=== PATIENT | female | born 2000 | race Caucasian/White ===

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

== ENCOUNTER 2021-05-31 04:20 | Inpatient (IN) | payer MEDICAID ==
[~2021-05-31] VITALS: Ht 157.5 cm; Wt 57.6 kg
[2021-05-31] VITALS (8 sets, daily range): BP systolic 89–129; BP diastolic 46–76
[~2021-05-31 04:20] MED LIST changes: +HUMALOG100 UNIT/1 SC; +ZOFRAN4 MG PO
[2021-05-31 05:54] LABS: HEMATOCRIT 43.8 % (37.0-47.0); MEAN CELL VOLUME 86.9 fl (81.0-99.0); MEAN CORPUSCULAR HGB 28.2 pg (27.0-31.0); MEAN CORPUSCULAR HGB CONC 32.4 g/dl (33.0-37.0); MEAN PLATELET VOLUME 11.6 fl (9.6-12.3); PLATELET COUNT AUTOMATED 391 10*3/uL (130-400); RED BLOOD COUNT 5.04 10*6/uL (4.10-5.10); RED CELL DISTRI WIDTH 13.2 % (0-14.5); WHITE BLOOD COUNT 15.2 10*3/uL (4.8-10.8)
[2021-05-31 05:56] LABS: MANUAL DIFF REFLEX YES
[2021-05-31 05:57] LABS: ALKALINE PHOSPHATASE 115 U/L (45-117); BUN 13 mg/dl (7-24); CHLORIDE 99 mmol/L (98-107); CREATININE 1.18 mg/dL (0.55-1.02); POTASSIUM 4.6 mmol/L (3.5-5.1); SGOT/AST 20 IU/L (3-35); SGPT/ALT 23 U/L (12-78); SODIUM 129 mmol/L (136-145); TOTAL PROTEIN 8.2 gm/dL (6.4-8.2)
[2021-05-31 06:08] LABS: BILIRUBIN Negative (Negative); BLOOD Negative (Negative); CLARITY Clear (Clear); COLOR Yellow (Yellow); GLUCOSE 3+ (Negative); KETONE 4+ (Negative); LEUKO ESTERASE Negative (Negative); NITRITE Negative (Negative); SPECIFIC GRAVITY >= 1.030 (1.001-1.030); UROBILINOGEN 0.2 E.U./dl (0.0-1.0)
[2021-05-31 06:23] LABS: WBC 0-2 wbc/hpf (0-5)
[2021-05-31 06:30] LABS: PLATELET SUFFICIENCY NORMAL (NORMAL); TOTAL CELLS COUNTED 100 #CELLS
[2021-05-31 10:07] LABS: BUN 16 mg/dl (7-24); CHLORIDE 105 mmol/L (98-107); POTASSIUM 4.8 mmol/L (3.5-5.1); SODIUM 134 mmol/L (136-145)
[2021-05-31] MEDS ORDERED: HUMALOG100 UNIT/2 SQ (14:30)
[2021-05-31 14:57] LABS: BUN 12 mg/dl (7-24); CHLORIDE 119 mmol/L (98-107); CREATININE 0.97 mg/dL (0.55-1.02); POTASSIUM 5.6 mmol/L (3.5-5.1); SODIUM 142 mmol/L (136-145)
[2021-05-31 20:31] LABS: BUN 9 mg/dl (7-24); CHLORIDE 121 mmol/L (98-107); CREATININE 0.96 mg/dL (0.55-1.02); SODIUM 144 mmol/L (136-145)
[2021-05-31 20:34] LABS: POTASSIUM 5.2 mmol/L (3.5-5.1)
[2021-06-01] VITALS: BP 95/40
[2021-06-01 00:22] LABS: BUN 7 mg/dl (7-24); CHLORIDE 114 mmol/L (98-107); CREATININE 0.94 mg/dL (0.55-1.02); SODIUM 139 mmol/L (136-145)
[2021-06-01 00:24] LABS: POTASSIUM 3.1 mmol/L (3.5-5.1)
[2021-06-01 02:08] LABS: BUN 7 mg/dl (7-24); CHLORIDE 116 mmol/L (98-107); CREATININE 0.91 mg/dL (0.55-1.02); POTASSIUM 2.8 mmol/L (3.5-5.1); SODIUM 141 mmol/L (136-145)
[2021-06-01 04:00] VITALS: BP 94/58
[2021-06-01 05:49] LABS: BUN 6 mg/dl (7-24); CHLORIDE 115 mmol/L (98-107); POTASSIUM 3.2 mmol/L (3.5-5.1); SODIUM 138 mmol/L (136-145)
[2021-06-01 05:52] LABS: ALKALINE PHOSPHATASE 88 U/L (45-117); CHOLESTEROL 100 mg/dL (<200); FREE T4 1.08 ng/dl (0.76-1.46); LDL CHOLESTEROL 45 mg/dL (9-159); SGOT/AST 11 IU/L (3-35); SGPT/ALT 21 U/L (12-78); TOTAL PROTEIN 6.4 gm/dL (6.4-8.2); TRIGLYCERIDES 81 mg/dl (<150)
[2021-06-01 06:05] LABS: BASO % 0.2 % (0.0-1.0); EOS # 0.1 10*3/uL (0.0-0.4); EOS % 0.5 % (1.0-4.0); HEMATOCRIT 35.8 % (37.0-47.0); LYMPH % 26.9 % (27.0-41.0); MEAN CELL VOLUME 86.1 fl (81.0-99.0); MEAN CORPUSCULAR HGB 28.1 pg (27.0-31.0); MEAN CORPUSCULAR HGB CONC 32.7 g/dl (33.0-37.0); MEAN PLATELET VOLUME 10.8 fl (9.6-12.3); MONO # 1.1 10*3/uL (0.1-1.0); MONO % 7.5 % (3.0-9.0); NEUT # 9.5 10*3/uL (2.3-7.9); NEUT % 64.6 % (47.0-73.0); PLATELET COUNT AUTOMATED 344 10*3/uL (130-400); RED BLOOD COUNT 4.16 10*6/uL (4.10-5.10); RED CELL DISTRI WIDTH 13.5 % (0-14.5); WHITE BLOOD COUNT 14.7 10*3/uL (4.8-10.8)
[2021-06-01 06:24] LABS: ACT PARTIAL THROMBO TIME 26.2 SECONDS (20.0-32.1); INTERNATIONAL NORM RATIO 1.2 (2.0-3.5)
[2021-06-01 06:49] LABS: VITAMIN D, 25-HYDROXY 11.2 ng/mL (30-100)
[2021-06-01 08:00] VITALS: BP 101/56
[2021-06-01 12:00] VITALS: BP 107/50
== END 2021-06-01 14:45 | disposition home or self-care (01) | DRG 420 ==
LOC: ED 04:20 → ICCU 06:20 → EDHOLD 06:20 → ICCU 12:20
PROVIDERS: Emergency Medicine; Internal Medicine; ADMIT Internal Medicine; ATTEND Internal Medicine
DX: E10.10 Type 1 diabetes mellitus with ketoacidosis without coma (principal); N17.0 Acute kidney failure with tubular necrosis; R65.10 Systemic inflammatory response syndrome (SIRS) of non-infectious origin without acute organ dysfunction; E87.1 Hypo-osmolality and hyponatremia; K21.9 Gastro-esophageal reflux disease without esophagitis; E78.5 Hyperlipidemia, unspecified; E55.9 Vitamin D deficiency, unspecified; F17.210 Nicotine dependence, cigarettes, uncomplicated; Z71.6 Tobacco abuse counseling; Z79.4 Long term (current) use of insulin; Z79.899 Other long term (current) drug therapy

== ENCOUNTER 2022-05-25 16:21 | Emergency (ER) | payer MEDICAID ==
[~2022-05-25] VITALS: Ht 157.4 cm; Wt 44.0 kg
[~2022-05-25 16:21] MED LIST changes: +HUMALOG100 UNIT/2 SQ
[2022-05-25] MEDS ORDERED: NAPROSYN500 MG PO (17:48)
== END 2022-05-25 17:55 | disposition home or self-care (01) ==
LOC: ED 16:21
DX: S63.601A Unspecified sprain of right thumb, initial encounter (principal); E11.9 Type 2 diabetes mellitus without complications; Z79.4 Long term (current) use of insulin; E11.10 Type 2 diabetes mellitus with ketoacidosis without coma; F17.200 Nicotine dependence, unspecified, uncomplicated; X58.XXXA Exposure to other specified factors, initial encounter; Y93.89 Activity, other specified; Y92.89 Other specified places as the place of occurrence of the external cause; Y99.8 Other external cause status

== ENCOUNTER 2024-06-30 20:33 | Inpatient (IN) | payer MEDICAID ==
[~2024-06-30] VITALS: Ht 157.4 cm; Wt 54.4 kg
[~2024-06-30 20:33] MED LIST changes: +NAPROSYN500 MG PO
[2024-06-30] MEDS ORDERED: Ondansetron Hydrochloride 4 MG/2 ML VIAL IV ONE (20:50)
[2024-06-30] MEDS ORDERED: SODIUM CHLORIDE 0.9% 1,000 ML IV ONE ×2 (20:50→22:45)
[2024-06-30 20:57] VITALS: BP 121/73
[2024-06-30 21:33] LABS: VENOUS BLOOD GAS O2 SAT 72.5 % (60.0-85.0)
[2024-06-30] MEDS ORDERED: LORazepam 0.5 MG TAB PO ONE ×2 (22:15→23:45)
[2024-06-30] MEDS ORDERED: INSULIN REGULAR, HUMAN 1 UNIT/0.01 ML IV ONE (22:45)
[2024-07-01] VITALS (7 sets, daily range): BP systolic 92–141; BP diastolic 52–75
[2024-07-01 00:16] LABS: BILIRUBIN Negative (Negative); BLOOD Negative (Negative); CLARITY Clear (Clear); COLOR Yellow (Yellow); GLUCOSE 3+ (Negative); KETONE 4+ (Negative); LEUKO ESTERASE Negative (Negative); NITRITE Negative (Negative); SPECIFIC GRAVITY 1.025 (1.001-1.030); UROBILINOGEN 0.2 E.U./dl (0.0-1.0)
[2024-07-01] MEDS ORDERED: INSULIN REGULAR, HUMAN 1 UNIT/0.01 ML IV ONE (00:20)
[2024-07-01] MEDS ORDERED: SODIUM CHLORIDE 0.9% 1,000 ML IV ONE (00:20)
[2024-07-01] MEDS ORDERED: Ondansetron Hydrochloride 4 MG/2 ML VIAL IV PRN (00:20)
[2024-07-01] MEDS ORDERED: POTASSIUM CHLORIDE 20 MEQ TAB PO PRN (00:25)
[2024-07-01] MEDS ORDERED: POTASSIUM CHLORIDE 20 MEQ/100 ML BAG IV PRN (00:25)
[2024-07-01] MEDS ORDERED: INSULIN REGULAR IN 0.9 % NACL 100 ML IV SCH (00:25)
[2024-07-01] MEDS ORDERED: SODIUM CHLORIDE 0.9% 1,000 ML IV SCH (00:30)
[2024-07-01 00:33] LABS: EPITHELIAL CELLS 16-20
[2024-07-01 00:39] LABS: HEMATOCRIT 46.7 % (37.0-47.0); MEAN CORPUSCULAR HGB CONC 29.8 g/dl (33.0-37.0); MEAN PLATELET VOLUME 10.1 fl (9.6-12.3); PLATELET COUNT AUTOMATED 555 10*3/uL (130-400); RED BLOOD COUNT 4.97 10*6/uL (4.10-5.10); RED CELL DISTRI WIDTH 13.7 % (0-14.5)
[2024-07-01 00:40] LABS: MANUAL DIFF REFLEX YES
[2024-07-01 01:05] LABS: PLATELET SUFFICIENCY HIGH (NORMAL); TOTAL CELLS COUNTED 100 #CELLS
[2024-07-01] MEDS ORDERED: diazePAM 10 MG/2 ML SYR IV ONE (01:05)
[2024-07-01 01:10] LABS: ALKALINE PHOSPHATASE 139 U/L (46-116); BUN 15 mg/dl (9-23); CHLORIDE 102 mmol/L (98-107); LIPASE 25 U/L (12-53); SGPT/ALT 25 U/L (5-49); TOTAL PROTEIN 8.4 gm/dL (6.0-8.0)
[2024-07-01 01:13] LABS: POTASSIUM 6.1 mmol/L (3.4-5.1)
[2024-07-01] MEDS ORDERED: diazePAM 10 MG/2 ML SYR IV PRN (02:50)
[2024-07-01 03:12] LABS: ABG O2 SATURATION 98.3 % (94.0-98.0); ARTERIAL BLOOD GAS PO2 134.2 mmHg (83.0-108.0)
[2024-07-01 03:13] LABS: ABG BASE EXCESS -23.3 mmol/L (-2.0-3.0)
[2024-07-01 03:14] LABS: ARTERIAL BLOOD GAS PH 7.084 (7.350-7.450)
[2024-07-01] MEDS ORDERED: SODIUM BICARBONATE 50 MEQ/50 ML VIAL IV ONE (03:25)
[2024-07-01 05:02] LABS: BUN 11 mg/dl (9-23); CHLORIDE 120 mmol/L (98-107)
[2024-07-01] MEDS ORDERED: DEXTROSE 5% SALINE 0.45% 1,000 ML IV SCH ×2 (05:10→05:50)
[2024-07-01] MEDS ORDERED: DEXTROSE 5% 1,000 ML IV SCH (05:15)
[2024-07-01 06:17] LABS: URINE AMPHETAMINES Negative (1000ng/ml); URINE BARBITURATES Negative (200ng/ml); URINE BENZODIAZEPINES Negative (200ng/ml); URINE CANNABINOIDS (THC) Positive (50ng/ml); URINE COCAINE Negative (300ng/ml); URINE METHADONE Negative (300ng/ml); URINE OPIATES Negative (300ng/ml); URINE PHENCYCLIDINE Negative (25ng/ml)
[2024-07-01] MEDS ORDERED: POTASSIUM PHOS IN 0.9 % NACL 250 ML IV SCH (08:00)
[2024-07-01 09:06] LABS: BUN 7 mg/dl (9-23); CHLORIDE 114 mmol/L (98-107); POTASSIUM 3.8 mmol/L (3.4-5.1)
[2024-07-01 09:15] LABS: MEAN CORPUSCULAR HGB 28.2 pg (27.0-31.0); MEAN CORPUSCULAR HGB CONC 32.1 g/dl (33.0-37.0); MEAN PLATELET VOLUME 9.9 fl (9.6-12.3); RED BLOOD COUNT 3.87 10*6/uL (4.10-5.10); RED CELL DISTRI WIDTH 13.9 % (0-14.5); WHITE BLOOD COUNT 21.3 10*3/uL (4.8-10.8)
[2024-07-01 09:19] LABS: MANUAL DIFF REFLEX YES
[2024-07-01 09:20] LABS: MEAN CELL VOLUME 87.9 fl (81.0-99.0); PLATELET COUNT AUTOMATED 352 10*3/uL (130-400)
[2024-07-01 09:21] LABS: PLATELET SUFFICIENCY NORMAL (NORMAL); POLYCHROMASIA SLIGHT; TOTAL CELLS COUNTED 100 #CELLS
[2024-07-01] MEDS ORDERED: HEPARIN SODIUM 5,000 UNIT/ML VIAL SC SCH (10:00)
[2024-07-01 13:23] LABS: BUN 6 mg/dl (9-23); CHLORIDE 111 mmol/L (98-107); POTASSIUM 3.4 mmol/L (3.4-5.1)
[2024-07-01] MEDS ORDERED: MENTHOL USP 1 LOZ LOZENGE PO PRN (14:20)
[2024-07-01] MEDS ORDERED: Insulin Glargine, Recombinan 1 UNIT/0.01 ML SC ONE (15:10)
[2024-07-01 17:55] LABS: BUN 5 mg/dl (9-23); CHLORIDE 110 mmol/L (98-107); POTASSIUM 3.2 mmol/L (3.4-5.1)
[2024-07-01] MEDS ORDERED: POTASSIUM CHLORIDE 20 MEQ TAB PO ONE (18:25)
[2024-07-01] MEDS ORDERED: DEXTROSE 50% 25 GM/50 ML VIAL IV PRN (18:25)
[2024-07-01] MEDS ORDERED: LORazepam 0.5 MG TAB PO ONE (20:15)
[2024-07-01] MEDS ORDERED: ACETAMINOPHEN 325 MG TAB PO PRN (20:50)
[2024-07-01] MEDS ORDERED: INSULIN LISPRO 1 UNIT/0.01 ML SQ SCH (22:00)
[2024-07-02] VITALS: BP 104/67
[2024-07-02 04:00] VITALS: BP 111/71
[2024-07-02 05:17] LABS: CHLORIDE 109 mmol/L (98-107); POTASSIUM 3.5 mmol/L (3.4-5.1)
[2024-07-02 05:20] LABS: BUN < 5 mg/dl (9-23)
[2024-07-02 06:14] LABS: BASO # 0.1 10*3/uL (0.0-0.1); BASO % 0.6 % (0.0-1.0); EOS # 0.2 10*3/uL (0.0-0.4); EOS % 1.9 % (1.0-4.0); HEMATOCRIT 32.2 % (37.0-47.0); MEAN CORPUSCULAR HGB 28.4 pg (27.0-31.0); MEAN CORPUSCULAR HGB CONC 32.6 g/dl (33.0-37.0); MEAN PLATELET VOLUME 10.3 fl (9.6-12.3); MONO # 0.5 10*3/uL (0.1-1.0); NEUT # 5.4 10*3/uL (2.3-7.9); NEUT % 60.8 % (47.0-73.0); PLATELET COUNT AUTOMATED 283 10*3/uL (130-400); WHITE BLOOD COUNT 8.9 10*3/uL (4.8-10.8)
[2024-07-02] MEDS ORDERED: Insulin Glargine, Recombinan 1 UNIT/0.01 ML SC SCH (07:30)
[2024-07-02 08:00] VITALS: BP 111/74
[2024-07-02 12:00] VITALS: BP 110/70
== END 2024-07-02 14:42 | disposition home or self-care (01) | DRG 637 ==
LOC: ED 20:33 → EDHOLD 22:41 → ICCU 22:41
PROVIDERS: Physician Assistant Medical; Student in an Organized Health Care Education/Training Program; ADMIT Family Medicine; ATTEND Family Medicine
PROC: 06HY33Z Insertion of Infusion Device into Lower Vein, Percutaneous Approach (ICD-10-PCS; principal; 2024-07-01)
PROC: B54BZZA Ultrasonography of Right Lower Extremity Veins, Guidance (ICD-10-PCS; 2024-07-01)
DX: E10.10 Type 1 diabetes mellitus with ketoacidosis without coma (principal); N17.0 Acute kidney failure with tubular necrosis; R65.11 Systemic inflammatory response syndrome (SIRS) of non-infectious origin with acute organ dysfunction; D68.61 Antiphospholipid syndrome; R45.851 Suicidal ideations; K21.9 Gastro-esophageal reflux disease without esophagitis; F41.9 Anxiety disorder, unspecified; R00.0 Tachycardia, unspecified; D72.828 Other elevated white blood cell count; D75.839 Thrombocytosis, unspecified; E83.39 Other disorders of phosphorus metabolism; E87.5 Hyperkalemia; E83.52 Hypercalcemia; E88.09 Other disorders of plasma-protein metabolism, not elsewhere classified; F32.A Depression, unspecified; E78.2 Mixed hyperlipidemia; Z79.899 Other long term (current) drug therapy; Z79.01 Long term (current) use of anticoagulants; Z71.6 Tobacco abuse counseling; Z87.891 Personal history of nicotine dependence; Z83.3 Family history of diabetes mellitus; Z80.8 Family history of malignant neoplasm of other organs or systems

== ENCOUNTER 2024-10-07 18:25 | Emergency (ER) | payer MEDICAID ==
[~2024-10-07] VITALS: Ht 154.9 cm; Wt 50.8 kg
[2024-10-07] MEDS ORDERED: diphenhydrAMINE hydrochloride 50 MG/ML VIAL IV ONE (18:35)
[2024-10-07] MEDS ORDERED: SODIUM CHLORIDE 0.9% 1,000 ML IV ONE ×3 (18:35→19:45)
[2024-10-07] MEDS ORDERED: FAMOTIDINE 50 ML IV ONE (18:35)
[2024-10-07] MEDS ORDERED: Metoclopramide Hydrochloride 10 MG/2 ML VIAL IV ONE (18:35)
[2024-10-07 18:38] VITALS: BP 121/84
[2024-10-07 18:56] LABS: BASO # 0.1 10*3/uL (0.0-0.1); BASO % 0.6 % (0.0-1.0); EOS # 0.0 10*3/uL (0.0-0.4); EOS % 0.1 % (1.0-4.0); MEAN CELL VOLUME 90.6 fl (81.0-99.0); MEAN CORPUSCULAR HGB 28.4 pg (27.0-31.0); MEAN PLATELET VOLUME 9.8 fl (9.6-12.3); MONO # 0.3 10*3/uL (0.1-1.0); MONO % 2.9 % (3.0-9.0); NEUT # 7.6 10*3/uL (2.3-7.9); NEUT % 78.8 % (47.0-73.0); NUCLEATED RED BLOOD CELL 0.0 % (0.0-0.0); NUCLEATED RED BLOOD CELL 0.0 10*3/uL (0.0-0.0); PLATELET COUNT AUTOMATED 424 10*3/uL (130-400); RED CELL DISTRI WIDTH 12.8 % (0-14.5); VENOUS BLOOD GAS O2 SAT 58.9 % (60.0-85.0)
[2024-10-07 19:24] LABS: BUN 20.0 mg/dl (9-23)
[2024-10-07] MEDS ORDERED: INSULIN REGULAR, HUMAN 1 UNIT/0.01 ML IV ONE (19:35)
[2024-10-07] MEDS ORDERED: INSULIN REGULAR IN 0.9 % NACL 100 ML IV SCH (19:45)
[2024-10-07] MEDS ORDERED: ZOLOFT50 MG PO (20:03)
[2024-10-07] MEDS ORDERED: ATARAX,VISTARIL10 MG PO (20:03)
[2024-10-07] MEDS ORDERED: INSULIN AS100 UNIT/3 SQ (20:04)
== END 2024-10-07 21:01 | disposition admitted as inpatient to this hospital (09) ==
LOC: ED 18:25 → EDHOLD 19:49 → ED 19:49 → ICCU 19:49 → EDHOLD 19:52 → ICCU 20:13
PROVIDERS: Emergency Medicine
DX: E10.10 Type 1 diabetes mellitus with ketoacidosis without coma (principal); N17.9 Acute kidney failure, unspecified; D75.839 Thrombocytosis, unspecified; F12.10 Cannabis abuse, uncomplicated; R11.2 Nausea with vomiting, unspecified; R19.7 Diarrhea, unspecified; F17.290 Nicotine dependence, other tobacco product, uncomplicated; Z79.899 Other long term (current) drug therapy; Z79.4 Long term (current) use of insulin

== ENCOUNTER 2024-10-07 23:25 | Inpatient (IN) | payer MEDICAID ==
[~2024-10-07] VITALS: Ht 157.5 cm; Wt 48.5 kg
[~2024-10-07 23:25] MED LIST changes: +ATARAX,VISTARIL10 MG PO; +INSULIN AS100 UNIT/3 SQ; +ZOLOFT50 MG PO
[2024-10-07 23:37] VITALS: BP 119/71
[2024-10-08] MEDS ORDERED: Promethazine Hydrochloride 25 MG/ML VIAL IM ONE (00:10)
[2024-10-08 00:28] LABS: BASO # 0.1 10*3/uL (0.0-0.1); BASO % 0.5 % (0.0-1.0); EOS # 0.0 10*3/uL (0.0-0.4); EOS % 0.1 % (1.0-4.0); MEAN CELL VOLUME 89.5 fl (81.0-99.0); MEAN CORPUSCULAR HGB 28.5 pg (27.0-31.0); MEAN PLATELET VOLUME 10.0 fl (9.6-12.3); MONO # 0.9 10*3/uL (0.1-1.0); MONO % 5.7 % (3.0-9.0); NEUT # 11.2 10*3/uL (2.3-7.9); NEUT % 71.6 % (47.0-73.0); NUCLEATED RED BLOOD CELL 0.0 % (0.0-0.0); NUCLEATED RED BLOOD CELL 0.0 10*3/uL (0.0-0.0); PLATELET COUNT AUTOMATED 427 10*3/uL (130-400); RED CELL DISTRI WIDTH 12.8 % (0-14.5)
[2024-10-08 00:45] LABS: BUN 15 mg/dl (9-23)
[2024-10-08] MEDS ORDERED: INSULIN REGULAR, HUMAN 1 UNIT/0.01 ML SC ONE ×2 (01:50)
[2024-10-08] MEDS ORDERED: ACETAMINOPHEN 325 MG TAB PO PRN (02:45)
[2024-10-08] MEDS ORDERED: INSULIN REGULAR IN 0.9 % NACL 100 ML IV SCH (02:45)
[2024-10-08] MEDS ORDERED: Acetaminophen/Hydrocodone 5 MG/325 MG TABLET PO PRN (02:45)
[2024-10-08] MEDS ORDERED: POTASSIUM CHLORIDE 20 MEQ in SODIUM CHLORIDE 0.45% 1,000 ML IV ONE (02:45)
[2024-10-08] MEDS ORDERED: Ondansetron Hydrochloride 4 MG/2 ML VIAL IV PRN (02:45)
[2024-10-08] MEDS ORDERED: SODIUM CHLORIDE 0.45% 1,000 ML IV ONE ×3 (02:45→03:29)
[2024-10-08] MEDS ORDERED: POTASSIUM CHLORIDE 20 MEQ/100 ML BAG IV PRN (02:45)
[2024-10-08] MEDS ORDERED: ACETAMINOPHEN 650 MG SUPP R PRN (02:45)
[2024-10-08] MEDS ORDERED: POTASSIUM CHLORIDE 20 MEQ TAB PO PRN (02:45)
[2024-10-08 02:55] VITALS: BP 126/67
[2024-10-08 04:23] LABS: MEAN CORPUSCULAR HGB 28.7 pg (27.0-31.0); MEAN PLATELET VOLUME 9.9 fl (9.6-12.3); NUCLEATED RED BLOOD CELL 0.0 % (0.0-0.0); NUCLEATED RED BLOOD CELL 0.0 10*3/uL (0.0-0.0); PLATELET COUNT AUTOMATED 403 10*3/uL (130-400); RED CELL DISTRI WIDTH 13.1 % (0-14.5)
[2024-10-08 04:24] LABS: MANUAL DIFF REFLEX YES; MEAN CELL VOLUME 92.8 fl (81.0-99.0)
[2024-10-08 04:43] LABS: PLATELET SUFFICIENCY HIGH (NORMAL)
[2024-10-08 04:45] LABS: FREE T4 1.04 ng/dl (0.89-1.76)
[2024-10-08 04:48] LABS: BUN 14 mg/dl (9-23)
[2024-10-08 06:00] VITALS: BP 106/68
[2024-10-08 06:44] LABS: BUN 10 mg/dl (9-23)
[2024-10-08] MEDS ORDERED: DEXTROSE 5% 1,000 ML IV SCH (08:10)
[2024-10-08 08:19] LABS: BILIRUBIN Negative (Negative); BLOOD Trace-Lysed (Negative); CLARITY Clear (Clear); COLOR Yellow (Yellow); KETONE 4+ (Negative); LEUKO ESTERASE Negative (Negative); NITRITE Negative (Negative); PH 5.0 (4.5-8.0); SPECIFIC GRAVITY 1.020 (1.001-1.030); UROBILINOGEN 0.2 E.U./dl (0.0-1.0)
[2024-10-08] MEDS ORDERED: Promethazine Hydrochloride 25 MG/ML VIAL IV PRN (10:55)
[2024-10-08 12:00] VITALS: BP 110/66
[2024-10-08 12:09] LABS: BUN 9 mg/dl (9-23)
[2024-10-08 14:30] LABS: BUN 7 mg/dl (9-23)
[2024-10-08] MEDS ORDERED: DEXTROSE 5% SALINE 0.9% 1,000 ML IV SCH (15:20)
[2024-10-08 16:00] VITALS: BP 96/52
[2024-10-08 18:45] LABS: BUN 5 mg/dl (9-23)
[2024-10-08 20:00] VITALS: BP 106/60
[2024-10-08 22:31] LABS: BUN 5 mg/dl (9-23)
[2024-10-09] VITALS: BP 91/48
[2024-10-09 02:37] LABS: BUN < 5 mg/dl (9-23)
[2024-10-09] MEDS ORDERED: POTASSIUM CHLORIDE IN WATER 100 ML IV SCH (03:00)
[2024-10-09 04:00] VITALS: BP 100/60
[2024-10-09 06:43] LABS: BASO # 0.0 10*3/uL (0.0-0.1); BASO % 0.4 % (0.0-1.0); EOS # 0.1 10*3/uL (0.0-0.4); EOS % 0.7 % (1.0-4.0); MEAN CORPUSCULAR HGB 28.4 pg (27.0-31.0); MEAN PLATELET VOLUME 9.7 fl (9.6-12.3); MONO # 0.6 10*3/uL (0.1-1.0); MONO % 6.1 % (3.0-9.0); NEUT # 6.2 10*3/uL (2.3-7.9); NEUT % 59.7 % (47.0-73.0); NUCLEATED RED BLOOD CELL 0.0 % (0.0-0.0); NUCLEATED RED BLOOD CELL 0.0 10*3/uL (0.0-0.0); PLATELET COUNT AUTOMATED 306 10*3/uL (130-400); RED CELL DISTRI WIDTH 13.0 % (0-14.5)
[2024-10-09 06:47] LABS: MEAN CELL VOLUME 88.3 fl (81.0-99.0)
[2024-10-09 07:03] LABS: BUN < 5 mg/dl (9-23)
[2024-10-09 08:00] VITALS: BP 120/82
[2024-10-09 11:18] LABS: BUN < 5 mg/dl (9-23)
[2024-10-09 12:00] VITALS: BP 116/84
[2024-10-09] MEDS ORDERED: Insulin Glargine, Recombinan 1 UNIT/0.01 ML SC ONE (12:00)
[2024-10-09] MEDS ORDERED: Potassium Phosphate, Monobas 500 MG TAB PO SCH (12:00)
[2024-10-09] MEDS ORDERED: MAGNESIUM SULFATE 50 ML IV ONE (12:00)
[2024-10-09] MEDS ORDERED: K-PHOS500 MG PO (13:10)
[2024-10-09 16:00] VITALS: BP 123/80
[2024-10-09 16:25] LABS: BUN < 5 mg/dl (9-23)
[2024-10-09] MEDS ORDERED: DEXTROSE 50% 25 GM/50 ML VIAL IV PRN (16:25)
[2024-10-09] MEDS ORDERED: INSULIN LISPRO 1 UNIT/0.01 ML SQ SCH (16:30)
== END 2024-10-09 18:03 | disposition home or self-care (01) | DRG 637 ==
LOC: ED 23:25 → ICCU 10-08 00:55 → EDHOLD 10-08 00:55 → ICCU 10-08 02:55
PROVIDERS: Internal Medicine; ADMIT Internal Medicine; ATTEND Internal Medicine
PROC: 06HY33Z Insertion of Infusion Device into Lower Vein, Percutaneous Approach (ICD-10-PCS; principal; 2024-10-08)
PROC: B54CZZA Ultrasonography of Left Lower Extremity Veins, Guidance (ICD-10-PCS; 2024-10-08)
DX: E10.10 Type 1 diabetes mellitus with ketoacidosis without coma (principal); N17.0 Acute kidney failure with tubular necrosis; R65.10 Systemic inflammatory response syndrome (SIRS) of non-infectious origin without acute organ dysfunction; D72.828 Other elevated white blood cell count; D75.839 Thrombocytosis, unspecified; F17.210 Nicotine dependence, cigarettes, uncomplicated; E83.42 Hypomagnesemia; E78.5 Hyperlipidemia, unspecified; K21.9 Gastro-esophageal reflux disease without esophagitis; Z79.899 Other long term (current) drug therapy; Z83.3 Family history of diabetes mellitus